=== PATIENT | female | born 1995 | race Caucasian/White ===

== ENCOUNTER → 2017-05-16 | Emergency (ER) | payer OTHER ==
[~2017-05-16] VITALS: Ht 157.5 cm; Wt 49.9 kg
[~2017-05-16] MED LIST: ACIDOPHILUS1 EAC1 PO; AMOX1TAB12 PO; CIPRO500 MG PO; FLAGYL500MG PO; KETO10TA2 PO; TUSSI-PRES LIQ120 ML PO
== END | disposition home or self-care (01) ==
LOC: ER 14:23
DX: J35.01 Chronic tonsillitis (principal)

== ENCOUNTER 2017-12-16 12:47 | Emergency (ER) | payer OTHER ==
[~2017-12-16] VITALS: Ht 154.9 cm; Wt 48.1 kg
== END 2017-12-16 19:28 | disposition home or self-care (01) ==
LOC: ER 12:47
DX: K29.70 Gastritis, unspecified, without bleeding (principal)

== ENCOUNTER 2020-07-18 19:57 | Emergency (ER) | payer OTHER ==
[~2020-07-18] VITALS: Ht 157.5 cm; Wt 58.1 kg
== END 2020-07-18 21:42 | disposition home or self-care (01) ==
LOC: ER 19:57
DX: M94.0 Chondrocostal junction syndrome [Tietze] (principal)

== ENCOUNTER 2020-09-13 23:14 | Emergency (ER) | payer OTHER ==
[~2020-09-13] VITALS: Ht 157.5 cm; Wt 57.6 kg
[2020-09-13] MEDS ORDERED: PROMETHAZINE W473 ML (23:34)
[2020-09-14] MEDS ORDERED: KETO10TA2 PO (10:47)
== END 2020-09-14 11:06 | disposition home or self-care (01) ==
LOC: ER 23:14
DX: N83.291 Other ovarian cyst, right side (principal); R10.31 Right lower quadrant pain